=== PATIENT | male | born 1970 | race Caucasian/White ===

== ENCOUNTER 2018-01-19 12:40 | Emergency (ER) | payer BC ==
[2018-01-19] MEDS ORDERED: Ketorolac 60 MG/2 ML SDV IM ONE (12:54)
--- NOTE | 2018-01-19 12:55 | EDM.PDOC ---
ED HPI GENERAL MEDICAL PROBLEM - General Chief Complaint: Upper Extremity Injury/Pain Stated Complaint: pain/numbness in left arm Time Seen by Provider: 01/19/18 12:52 Source of Information: Reports: Patient History Limitations: Reports: No Limitations - History of Present Illness INITIAL COMMENTS - FREE TEXT/NARRATIVE: Patient drove self to ER with complaint of two episodes of chest pain. First episode happened around 10pm last night. Had sudden central/left sided chest pain that lasted around 15 minutes. No specific trigger linked to developing pain. Pain shot up towards neck. Had single episode of nausea/emesis. [place] dizzy. Sat in chair. Pain resolved in approximately 15". No sweating/SOB. [employer] [place] ok when he woke up today. While at work, had similar episode of chest pain while he was walking "across the shop". Again had nausea/emesis/dizzy Came to ER for evaluation. Pain-free at this time. Reports that heart felt like it was "beating funny" just prior to each of the above episodes. Strong family history of CAD. Has brother aged 42 who has had stents. Biological father with multiple MIs. Smoker. Denies ETOH usage except for socially 1-2 times a month. Has history of previously noted elevated triglycerides and LFTs. Does not take any medications. Recent problem with numbness/tingling of left arm after having a soft tissue injury while using sledgehammer a week ago. [employer] [place]/heard "pop" in left elbow area , followed by pain/swelling/numbness. Pending MRI this week for that to look for tendon/ligament injury. Complains of left arm numbness at this time. - Related Data Allergies Allergy/AdvReac Type Severity Reaction Status Date / Time No Known Allergies Allergy Verified 01/19/18 12:46 Past Medical History Cardiovascular History: Reports: High Cholesterol Respiratory History: Reports: Other (See Below) (smoker) - History Comment History Comment: Elevated LFTs noted in past Social & Family History - Family History Cardiac: Reports: CAD, [place], Stent - Tobacco Use Smoking Status *Q: Current Every Day Smoker - Alcohol Use Alcohol Use Frequency: Rarely, Socially - Recreational Drug Use Recreational Drug Use: No Drug Use in Last 12 Months: No - Living Situation & Occupation Living situation: Reports: Occupation: Employed Review of Systems - Review of Systems Review Of Systems: See Below Constitutional: Reports: No Symptoms Eyes: Reports: No Symptoms Ears: Reports: No Symptoms Nose: Reports: No Symptoms Mouth/Throat: Reports: No Symptoms Respiratory: Reports: No Symptoms. Denies: Shortness of Breath, Pleuritic Chest Pain, Cough, Hemoptysis Cardiovascular: Reports: Chest Pain, Lightheadedness, Palpitations. Denies: Syncope GI/Abdominal: Reports: Nausea, Vomiting. Denies: Abdominal Pain, Constipation, Decreased Appetite, Diarrhea Genitourinary: Reports: No Symptoms Musculoskeletal: Reports: Neck Pain, Arm Pain, Joint Pain (left elbow), Joint Swelling (left elbow) Skin: Reports: No Symptoms Neurological: Reports: Dizziness, Numbness (left arm), Weakness (left arm). Denies: Confusion, Difficulty Walking, Change in Speech, Gait Disturbance Psychiatric: Reports: No Symptoms ED EXAM, GENERAL - Physical Exam Exam: See Below Exam Limited By: No Limitations General Appearance: Alert, WD/WN, No Apparent Distress Eye Exam: Bilateral Eye: EOMI, PERRL Ears: Normal External Exam Nose: Normal Inspection Throat/Mouth: Normal Inspection, Normal Lips, Normal Voice, No Airway Compromise Head: Atraumatic, Normocephalic Neck: Normal Inspection, Supple, Non-Tender, Full Range of Motion. No: Carotid Bruit, Lymphadenopathy (L), Lymphadenopathy (R) Respiratory/Chest: No Respiratory Distress, Lungs Clear, Normal Breath Sounds, No Accessory Muscle Use, Chest Non-Tender Cardiovascular: Normal Peripheral Pulses, Regular Rate, Rhythm, No Edema, No Murmur Peripheral Pulses: 2+: Radial (L), Radial (R) GI/Abdominal: Normal Bowel Sounds, Soft, Non-Tender, No Distention (Male) Exam: Deferred Rectal (Males) Exam: Deferred Back Exam: Normal Inspection Extremities: Normal Capillary Refill, Other (mild swelling left elbow/forearm area. some discomfort with palpation in same area. 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) Neurological: Alert, Oriented, Normal Cognition, Normal Gait Psychiatric: Normal Affect, Normal Mood Skin Exam: Warm, Dry, Intact, Normal Color EKG INTERPRETATION EKG Date: 01/19/18 Time: 13:07 Rhythm: NSR Rate (Beats/Min): 74 [place]: Normal P-Wave: Present QRS: Normal ST-T: Other (minimal elevation (1 box) noted V2) Comparison: Change From Previous EKG (V2/1 box elevation) Course - Vital Signs Last Recorded V/S: Last Vital Signs Temp 37.1 C 01/19/18 12:43 Pulse 79 01/19/18 14:10 Resp 16 01/19/18 13:21 BP 141/82 H 01/19/18 14:10 Pulse Ox 100 01/19/18 13:21 - Orders/Labs/Meds Orders: Active Orders 24 hr Category Date Time Status EKG Documentation Completion [RC] ASDIRECTED Care 01/19/18 12:53 Active Chest 2V [CR] Stat Exams 01/19/18 13:36 Ordered Heparin Sodium/D5W [Heparin 25,000 Units in D5W 500 ML] Med 01/19/18 14:09 Active 25,000 units in 500 ml IV TITRATE Medication Orders Heparin Sodium/Dextrose (Heparin 25,000 Units In D5w 500 Ml) 25,000 units in 500 mls @ 27.76 mls/hr IV TITRATE KODI; Protocol Last Admin: 01/19/18 14:14 Dose: 12 units/kg/hr, 27.76 mls/hr Labs: Laboratory Tests 01/19/18 01/19/18 01/19/18 Range/Units 13:00 13:00 13:00 WBC 9.0 (4.0-10.2) K/uL RBC 5.10 (4.33-5.41) M/uL Hgb 15.5 (13.1-16.8) g/dL Hct 43.6 (39.0-49.0) % MCV 85.5 (84.0-98.0) fL MCH 30.4 (28.2-33.3) pg MCHC 35.6 (31.7-36.0) g/dL RDW 12.7 (11.2-14.1) % Plt Count 261 (150-350) K/uL Neut % (Auto) 59.1 (45.0-80.0) % Lymph % (Auto) 32.4 (10.0-50.0) % [place] % (Auto) 6.1 (2.0-14.0) % Eos % (Auto) 2.2 (0.0-5.0) % Baso % (Auto) 0.2 (0.0-2.0) % Neut # (Auto) 5.34 (1.40-7.00) K/uL Lymph # (Auto) 2.93 (0.50-3.50) K/uL [place] # (Auto) 0.55 (0.00-1.00) K/uL Eos # (Auto) 0.20 (0.00-0.50) K/uL Baso # (Auto) 0.02 (0.00-0.20) K/uL PT (9.8-11.7) SEC INR D-Dimer, Quantitative < 100 (0-400) ng/mL Sodium 139 (136-145) mmol/L Potassium 4.1 (3.5-5.1) mmol/L Chloride 104 (98-107) mmol/L Carbon Dioxide 27.2 (21.0-32.0) mmol/L BUN 10 (7-18) mg/dL Creatinine 0.77 (0.51-1.17) mg/dL Est Cr Clr Drug Dosing 121.14 mL/min Estimated GFR (MDRD) > 60 mL/min Glucose 103 (74-106) mg/dL Calcium 10.0 (8.5-10.1) mg/dL Total Bilirubin 0.4 (0.2-1.0) mg/dL AST 97 H (15-37) U/L ALT 166 H (12-78) U/L Alkaline Phosphatase 117 H (46-116) IU/L Creatine Kinase 322 H (26-308) U/L Creatine Kinase Index 1.4 (0.0-2.5) % CK-MB (CK-2) 4.50 H* (0.00-3.60) ng/mL Troponin I 0.076 H* (0.000-0.056) ng/mL Total Protein 8.2 (6.4-8.2) g/dL Albumin 4.1 (3.4-5.0) g/dL Ethyl Alcohol (0.000-0.080) g/dL 01/19/18 01/19/18 Range/Units 13:00 13:00 WBC (4.0-10.2) K/uL RBC (4.33-5.41) M/uL Hgb (13.1-16.8) g/dL Hct (39.0-49.0) % MCV (84.0-98.0) fL MCH (28.2-33.3) pg MCHC (31.7-36.0) g/dL RDW (11.2-14.1) % Plt Count (150-350) K/uL Neut % (Auto) (45.0-80.0) % Lymph % (Auto) (10.0-50.0) % [place] % (Auto) (2.0-14.0) % Eos % (Auto) (0.0-5.0) % Baso % (Auto) (0.0-2.0) % Neut # (Auto) (1.40-7.00) K/uL Lymph # (Auto) (0.50-3.50) K/uL [place] # (Auto) (0.00-1.00) K/uL Eos # (Auto) (0.00-0.50) K/uL Baso # (Auto) (0.00-0.20) K/uL PT 10.2 (9.8-11.7) SEC INR 1.0 D-Dimer, Quantitative (0-400) ng/mL Sodium (136-145) mmol/L Potassium (3.5-5.1) mmol/L Chloride (98-107) mmol/L Carbon Dioxide (21.0-32.0) mmol/L BUN (7-18) mg/dL Creatinine (0.51-1.17) mg/dL Est Cr Clr Drug Dosing mL/min Estimated GFR (MDRD) mL/min Glucose (74-106) mg/dL Calcium (8.5-10.1) mg/dL Total Bilirubin (0.2-1.0) mg/dL AST (15-37) U/L ALT (12-78) U/L Alkaline Phosphatase (46-116) IU/L Creatine Kinase (26-308) U/L Creatine Kinase Index (0.0-2.5) % CK-MB (CK-2) (0.00-3.60) ng/mL Troponin I (0.000-0.056) ng/mL Total Protein (6.4-8.2) g/dL Albumin (3.4-5.0) g/dL Ethyl Alcohol 0.000 (0.000-0.080) g/dL Meds: Medications Generic Name Dose Route Start Last Admin Trade Name Freq PRN Reason Stop Dose Admin Heparin Sodium/Dextrose 25,000 units in 500 mls @ 27.76 mls/hr 01/19/18 14:09 01/19/18 14:14 Heparin 25,000 Units In D5w 500 Ml IV 12 units/kg/hr TITRATE KODI 27.76 mls/hr Administration Protocol 12 UNITS/KG/HR Discontinued Medications Generic Name Dose Route Start Last Admin Trade Name Herlinda PRN Reason Stop Dose Admin Aspirin 324 mg 01/19/18 13:36 01/19/18 13:40 Aspirin PO 01/19/18 13:37 324 mg ONETIME ONE Administration Heparin Sodium (Porcine) 4,000 units 01/19/18 14:01 01/19/18 14:11 Heparin Sodium IVPUSH 01/19/18 14:02 4,000 units ONETIME ONE Administration Heparin Sodium/Dextrose 25,000 units in 500 mls @ 27.76 mls/hr 01/19/18 14:15 Heparin 25,000 Units In D5w 500 Ml IV TITRATE [facility] Protocol 12 UNITS/KG/HR Ketorolac Tromethamine 60 mg 01/19/18 12:54 01/19/18 13:42 Toradol IM 01/19/18 12:55 Not Given ONETIME ONE Metoprolol Tartrate 12.5 mg 01/19/18 14:00 01/19/18 14:10 Lopressor PO 01/19/18 14:01 12.5 mg ONETIME ONE Administration - Radiology Interpretation Free Text/Narrative:: Chest film showed no obvious acute changes. - Re-Assessments/Exams Free Text/Narrative Re-Assessment/Exam: 01/19/18 14:24 Patient remained pain-free in ER during evaluation. Vital signs stable. BP improved with time. Noted to have + Troponin and CKMB. Called and discussed patient with from [facility]. 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 Patient given ASA, Heparin, Metoprolol. Departure - Departure Time of Disposition: 14:23 Disposition: DC/Tfer to Acute Hospital 02 Condition: Good Clinical Impression: Elevated troponin Chest pain Qualifiers: Chest pain type: unspecified Qualified Code(s): R07.9 - Chest pain, unspecified - Discharge Information Referrals: PCP,Unknown [Primary Care Provider] - Forms: ED Department Discharge - My Orders Last 24 Hours: My Active Orders 01/19/18 12:53 EKG Documentation Completion [RC] ASDIRECTED 01/19/18 13:36 Chest 2V [CR] Stat 01/19/18 14:09 Heparin Sodium/D5W [Heparin 25,000 Units in D5W 500 ML] 25,000 units in 500 ml IV TITRATE - Assessment/Plan Last 24 Hours: My Active Orders 01/19/18 12:53 EKG Documentation Completion [RC] ASDIRECTED 01/19/18 13:36 Chest 2V [CR] Stat 01/19/18 14:09 Heparin Sodium/D5W [Heparin 25,000 Units in D5W 500 ML] 25,000 units in 500 ml IV TITRATE
[2018-01-19] MEDS ORDERED: Aspirin 81 MG Tab.Chew PO ONE (13:36)
[2018-01-19 13:37] LABS: CHLORIDE,CL 104 mmol/L (98-107); SODIUM,NA 139 mmol/L (136-145)
[2018-01-19] MEDS ORDERED: Metoprolol Tartrate 25 MG Tab PO ONE (14:00)
[2018-01-19] MEDS ORDERED: Heparin Sodium 5,000 Units/ML Vial IVPUSH ONE (14:01)
[2018-01-19] MEDS ORDERED: Heparin Sodium/D5W 25,000 UNITS/500 ML BAG IV SCH ×2 (14:09→14:15)
== END 2018-01-19 14:30 ==
LOC: LL.ED 12:40
DX: R07.9 Chest pain, unspecified (principal); R79.89 Other specified abnormal findings of blood chemistry; F17.200 Nicotine dependence, unspecified, uncomplicated; E78.00 Pure hypercholesterolemia, unspecified
CPT/HCPCS: 36415; 71046; 80053; 82550; 82553; 84484; 85025; 85379; 85610; 93005; 96374; 96376; 99285; A9270-GY; G0480; J1644

== ENCOUNTER 2021-04-20 17:54 | Emergency (ER) | payer OTHER ==
[2021-04-20] MEDS ORDERED: Sodium Chloride 0.9% 10 ML Syringe FLUSH PRN (18:12)
--- NOTE | 2021-04-20 18:43 | EDM.PDOC ---
ED HPI GENERAL MEDICAL PROBLEM - General Chief Complaint: General Stated Complaint: lightheaded, spinning sensation, left arm numbness Time Seen by Provider: 04/20/21 18:20 Source of Information: Reports: Patient History Limitations: Reports: No Limitations - History of Present Illness INITIAL COMMENTS - FREE TEXT/NARRATIVE: Patient presents to the Ed for sudden onset of dizziness. He states that he started his day well, no problems or pain. Had a normal day yesterday. He took his medication this morning and at about 3 pm he went to the [facility] to change his 's oil in the car. He bent over to get on his car slide and had sudden onset of the room spins. He caught himself with his left arm ( his dominant arm) but this caused him pain as he has been struggling with some left arm numbness and mid scapular pain for about a week. After resting on the ground for several minutes he managed to walk into the house. He sat in a chair for a few minutes and was still feeling dizzy like the room was spinning so he then laid on the floor and took a nap . He was found by his family members and continued to be dizzy so they decided to bring him in for evaluation. He does have a history of PTCA a couple of years ago. He is taking his medications and is scheduled to follow up with cardiology soon. Denies any chest pain. His symptoms are starting to resolve at arrival to the ER. He continues to complain of left arm pain but this has not changed in the last week. He did go to the chiropractor 3-4 days ago and had a forceful manipulation of his neck. Onset: Today, Sudden Onset Time: 15:00 - Related Data Allergies Allergy/AdvReac Type Severity Reaction Status Date / Time No Known Allergies Allergy Verified 04/20/21 18:24 Home Meds: Home Meds Aspirin 3 tab PO DAILY 04/20/21 [History] Metoprolol Tartrate 12.5 mg PO BID 04/20/21 [History] Niacin 2 tab PO BID 04/20/21 [History] [place]ille-3S/DHA/Epa/Fish Oil [Deville-3 Fish Oil 1,000 mg Sfgl] 2 tab PO BID 04/20/21 [History] Rosuvastatin [Crestor] 40 mg PO DAILY 04/20/21 [History] Past Medical History Cardiovascular History: Reports: CAD, High Cholesterol, Stents Respiratory History: Reports: Other (See Below) (smoker) - Past Surgical History Cardiovascular Surgical History: Reports: Coronary Artery Stent GI Surgical History: Reports: Appendectomy, Cholecystectomy - History Comment History Comment: Elevated LFTs noted in past Social & Family History - Family History Cardiac: Reports: CAD, [place], Stent - Tobacco Use Tobacco Use Status *Q: Current Every Day Tobacco User Years of Tobacco use: 30 Packs/Tins Daily: 1 Second Hand Smoke Exposure: No - Caffeine Use Caffeine Use: Reports: Soda Caffeine Use Comment: 1 mt dew in am , dt coke x 5 daily - Alcohol Use Date of Last Drink: 04/19/21 Alcohol Use in Last Twelve Months: Yes Alcohol Use Frequency: Weekly - Recreational Drug Use Recreational Drug Use: No Drug Use in Last 12 Months: No - Living Situation & Occupation Living situation: Reports: Occupation: Employed ED ROS GENERAL - Review of Systems Review Of Systems: See Below Constitutional: Reports: No Symptoms. Denies: Fever, Chills HEENT: Reports: No Symptoms. Denies: Sinus Problem, Throat Swelling Respiratory: Reports: No Symptoms. Denies: Shortness of Breath, Cough Cardiovascular: Denies: Chest Pain, Dyspnea on Exertion GI/Abdominal: Reports: No Symptoms. Denies: Decreased Appetite, Nausea, Vomiting : Reports: No Symptoms. Denies: Discharge, Dysuria Musculoskeletal: Reports: Arm Pain (left arm for the last week ) Skin: Reports: No Symptoms Neurological: Reports: Dizziness (spinning), Tingling (left arm entire length for the last week ) ED EXAM, GENERAL - Physical Exam Exam: See Below Exam Limited By: No Limitations General Appearance: Alert, WD/WN, No Apparent Distress Eye Exam: Bilateral Eye: EOMI (no nystgamus), Normal Inspection, PERRL (3mm reactive) Ears: Normal External Exam, Normal TMs Ear Exam: Bilateral Ear: Canal Normal, TM normal Nose: Normal Inspection, Normal Mucosa, No Blood Throat/Mouth: Normal Inspection, Normal Lips, Normal Teeth, Normal Voice Head: Atraumatic Neck: Normal Inspection, Supple, Non-Tender, Full Range of Motion. No: Lymphadenopathy (R), Tender Lateral, Tender Midline, Thyromegaly Respiratory/Chest: No Respiratory Distress, Lungs Clear, Normal Breath Sounds, Chest Non-Tender Cardiovascular: Normal Peripheral Pulses, Regular Rate, Rhythm, No Edema, No Murmur GI/Abdominal: Normal Bowel Sounds, Soft, Non-Tender, No Abnormal Bruit Back Exam: Normal Inspection, Full Range of Motion. No: CVA Tenderness (L), CVA Tenderness (R), Decreased Range of Motion Extremities: Normal Inspection, Normal Range of Motion, No Pedal Edema, Normal Capillary Refill, Other (normal synthetic chemist stregnth, push pull of the right and upper extremities. No lesions or rashes, no muscle atrophy) Neurological: Alert, Oriented, CN II-XII Intact, Normal Cognition, Normal Gait, No Motor/Sensory Deficits, Other (negative pronator drift, normal finger to nose with eyes closed, normal ELIZABET, normal strength thumb to second finger and thumb to fifth finger to resistance, normal synthetic chemist strength in the upper and lower extremities, normal dorsi and plantar flexion, normal heel to li) Psychiatric: Normal Affect #1 Interpretation EKG Date: 04/20/21 Time: 18:59 Rhythm: NSR Rate (Beats/Min): 63 [place]: Normal P-Wave: Present QRS: Normal ST-T: Normal QT: Normal Course - Vital Signs Last Recorded V/S: Last Vital Signs Temp 36.3 C 04/20/21 20:15 Pulse 65 04/20/21 20:15 Resp 16 04/20/21 20:15 BP 135/91 H 04/20/21 20:15 Pulse Ox 96 04/20/21 20:15 - Orders/Labs/Meds Orders: Active Orders 24 hr Category Date Time Status EKG Documentation Completion [RC] ASDIRECTED Care 04/20/21 18:13 Ordered Peripheral IV Care [RC] . DIRECTED Care 04/20/21 18:12 Ordered Ang Head [CT] Stat Exams 04/20/21 20:30 Ordered Ang Neck [CT] Stat Exams 04/20/21 18:25 Ordered Chest 2V [CR] Stat Exams 04/20/21 18:26 Ordered Head wo Cont [CT] Stat Exams 04/20/21 18:25 Ordered Sodium Chloride 0.9% [Saline Flush] Med 04/20/21 18:12 Ordered 10 ml FLUSH ASDIRECTED PRN Peripheral IV Insertion Adult [OM.PC] Routine Oth 04/20/21 18:12 Ordered EKG 12 Lead [EK] Stat Ther 04/20/21 18:12 Ordered Medication Orders Sodium Chloride (Sodium Chloride 0.9% 10 Ml Syringe) 10 ml FLUSH ASDIRECTED PRN PRN Reason: Keep Vein Open Labs: Laboratory Tests 04/20/21 04/20/21 04/20/21 Range/Units 18:45 18:45 19:25 WBC 8.8 (4.0-10.2) K/uL RBC 5.09 (4.33-5.41) M/uL Hgb 15.2 (13.1-16.8) g/dL Hct 42.8 (39.0-49.0) % MCV 84.1 (84.0-98.0) fL MCH 29.9 (28.2-33.3) pg MCHC 35.5 (31.7-36.0) g/dL RDW 12.6 (11.2-14.1) % Plt Count 186 (150-350) K/uL Neut % (Auto) 57.1 (45.0-80.0) % Lymph % (Auto) 30.9 (10.0-50.0) % [place] % (Auto) 5.9 (2.0-14.0) % Eos % (Auto) 5.5 H (0.0-5.0) % Baso % (Auto) 0.6 (0.0-2.0) % Neut # (Auto) 5.02 (1.40-7.00) K/uL Lymph # (Auto) 2.71 (0.50-3.50) K/uL [place] # (Auto) 0.52 (0.00-1.00) K/uL Eos # (Auto) 0.48 (0.00-0.50) K/uL Baso # (Auto) 0.05 (0.00-0.20) K/uL Sodium 141 (136-145) mmol/L Potassium 4.4 (3.5-5.1) mmol/L Chloride 105 (98-107) mmol/L Carbon Dioxide 25.9 (21.0-32.0) mmol/L Anion Gap 10.1 (7-15) meq/L BUN 17 (7-18) mg/dL Creatinine 0.97 (0.51-1.17) mg/dL Est Cr Clr Drug Dosing TNP Estimated GFR (MDRD) > 60 mL/min Glucose 103 H (70-99) mg/dL Calcium 9.6 (8.5-10.1) mg/dL Total Bilirubin 0.4 (0.2-1.0) mg/dL AST 31 (15-37) U/L ALT 43 (12-78) U/L Alkaline Phosphatase 115 (46-116) IU/L Troponin I High Sens 6 (<=76) ng/L Total Protein 7.4 (6.4-8.2) g/dL Albumin 4.1 (3.4-5.0) g/dL TSH, Ultra Sensitive 0.921 (0.358-3.740) mIU/mL Specimen Type Urincc Urine Color Yellow Urine Appearance Clear Urine pH 7.0 (5.0-9.0) Ur Specific [place] 1.020 (1.005-1.030) Urine Protein Negative (NEGATIVE) mg/dL Urine Glucose (UA) Negative (NEGATIVE) mg/dL Urine Ketones Negative (NEGATIVE) mg/dL Urine Occult Blood Negative (NEGATIVE) Urine Nitrite Negative (NEGATIVE) Urine Bilirubin Negative (NEGATIVE) Urine Urobilinogen 0.2 (0.2-1.0) E.U./dL Ur Leukocyte Esterase Negative (NEGATIVE) Meds: Medications Generic Name Dose Route Start Last Admin Trade Name Freq PRN Reason Stop Dose Admin Sodium Chloride 10 ml 04/20/21 18:12 Sodium Chloride 0.9% 10 Ml Syringe FLUSH ASDIRECTED PRN Keep Vein Open Discontinued Medications Generic Name Dose Route Start Last Admin Trade Name Freq PRN Reason Stop Dose Admin Sodium Chloride 1,000 mls @ 1,000 mls/hr 04/20/21 18:12 04/20/21 18:48 Normal Saline IV 04/20/21 19:11 1,000 mls/hr .BOLUS ONE Administration Iopamidol 100 ml 04/20/21 18:56 04/20/21 19:39 Iopamidol 755 Mg/Ml 100 Ml Bottle IVPUSH 04/20/21 18:57 100 ml ONETIME STA Administration - Radiology Interpretation Free Text/Narrative:: Ct head non contrast without changes. CTA head and neck with no dissection, s troke or acute problem. Has 50% right internal carotid artery stenosis. Does have some significant spinal stenosis of C4-6 with foraminal stenosis. Discussed with Radiologist Chest no acute problems , interpreted by radiologist - Re-Assessments/Exams Free Text/Narrative Re-Assessment/Exam: 04/20/21 18:57 Patient had sudden onset of dizziness which is improving. Normal neuro exam, does not have any notable defect. Concern for his forceful manipulation of his neck and dissection. Will get CTA neck, ct non contrast head. Check labs, EKG and chest x-ray. Does have a history of CAD, with history of genetically high cholesterol and triglycerides. Is on medication and is taking with good success of lowering of levels. His NC was with symptoms of not feeling well, no chest pain or arm numbness. 04/20/21 21:06 Discussed findings with patient. Needs to follow up for MRI c spine and thoracic spine due to significant stenosis and arm problems. recommend carotid dopplers due to stenosis on right. Understands need to keep close follow up with cardiology and is at high risk for peripheral vascular disease also. Will due meclizine and move the head and neck as one motion if the dizziness recurs. If it recurs and persist or neurological changes happen, needs MRI in [place]. voices undertsanding Departure - Departure Time of Disposition: 21:00 Disposition: Home, Self-Care 01 Clinical Impression: Dizziness, Cervical spinal stenosis, Carotid artery disease - Discharge Information *PRESCRIPTION DRUG MONITORING PROGRAM REVIEWED*: Not Applicable *COPY OF PRESCRIPTION DRUG MONITORING REPORT IN PATIENT PABLO: Not Applicable Instructions: Dizziness, [id number]-Frex, Spinal Stenosis, Dzil-ex-Nipl, Carotid Artery Disease Referrals: PCP,None [Primary Care Provider] - Forms: ED Department Discharge Additional Instructions: Testing today was negative for infection, electrolyte problems, thyroid problems, heart attack, stroke or artery dissection. hydrate better. If the dizziness recurs, you can use over the counter meclizine for the dizziness and limit your head and neck movement to move as one. DO not allow forceful chiropractic manipulation of your neck as this can lead to vertebral artery dissection. Keep follow up with cardiology and follow up with your PCP later in the week. It is recommended that you get an MRI of your cervical spine and thoracic spine due to stenosis. Also you have about 50% blockage in the right internal carotid artery. CArotid doppler ( ultrasound) studies are recommended. Contact PCP for this. Sepsis Event Note (ED) - Evaluation Sepsis Screening Result: No Definite Risk - Focused Exam Vital Signs: Vital Signs Temp Pulse Resp BP Pulse Ox 04/20/21 20:15 36.3 C 65 16 135/91 H 96 04/20/21 19:39 36.3 C 68 22 H 149/83 H 98 04/20/21 19:00 68 68 H 157/94 H 95 04/20/21 18:31 72 20 140/81 95 04/20/21 18:15 72 20 118/83 98 04/20/21 18:10 36.4 C 69 20 153/89 H 94 L - My Orders Last 24 Hours: My Active Orders 04/20/21 18:12 Peripheral IV Care [RC] . DIRECTED Sodium Chloride 0.9% [Saline Flush] 10 ml FLUSH ASDIRECTED PRN Peripheral IV Insertion Adult [OM.PC] Routine EKG 12 Lead [EK] Stat 04/20/21 18:13 EKG Documentation Completion [RC] ASDIRECTED 04/20/21 18:25 Ang Neck [CT] Stat Head wo Cont [CT] Stat 04/20/21 18:26 Chest 2V [CR] Stat 04/20/21 20:30 Ang Head [CT] Stat - Assessment/Plan Last 24 Hours: My Active Orders 04/20/21 18:12 Peripheral IV Care [RC] . DIRECTED Sodium Chloride 0.9% [Saline Flush] 10 ml FLUSH ASDIRECTED PRN Peripheral IV Insertion Adult [OM.PC] Routine EKG 12 Lead [EK] Stat 04/20/21 18:13 EKG Documentation Completion [RC] ASDIRECTED 04/20/21 18:25 Ang Neck [CT] Stat Head wo Cont [CT] Stat 04/20/21 18:26 Chest 2V [CR] Stat 04/20/21 20:30 Ang Head [CT] Stat
[2021-04-20] MEDS: Sodium Chloride 0.9% 1,000 ML IV ONE (18:48)
[2021-04-20 19:11] LABS: ANION GAP 10.1 meq/L (7-15); CHLORIDE,CL 105 mmol/L (98-107); SODIUM,NA 141 mmol/L (136-145)
[2021-04-20] MEDS: Iopamidol 755 Mg/ML 100 ML Bottle IVPUSH STA (19:39)
== END 2021-04-20 21:13 | disposition home or self-care (01) ==
LOC: LL.ED 17:54
DX: M48.02 Spinal stenosis, cervical region (principal); I77.9 Disorder of arteries and arterioles, unspecified; I25.10 Atherosclerotic heart disease of native coronary artery without angina pectoris; E78.00 Pure hypercholesterolemia, unspecified; Z95.5 Presence of coronary angioplasty implant and graft; Z72.0 Tobacco use; Z79.82 Long term (current) use of aspirin; Z79.899 Other long term (current) drug therapy
CPT/HCPCS: 70496; 70498; 71046; 80053; 81003; 84443; 84484; 85025; 93005; 99284; J7030; Q9967; 70450; 93010

== ENCOUNTER 2022-03-16 22:18 | Emergency (ER) | payer OTHER ==
[2022-03-16] MEDS ORDERED: Sodium Chloride 0.9% 1,000 ML IV ONE (22:39)
[2022-03-16] MEDS ORDERED: Ketorolac 30 MG/ML SDV IVPUSH ONE (22:40)
[2022-03-16] MEDS ORDERED: Promethazine 12.5 MG in Sodium Chloride 0.9% 100 ML IV ONE (22:40)
[2022-03-16] MEDS ORDERED: Sodium Chloride 0.9% 10 ML Syringe FLUSH PRN (22:52)
[2022-03-16 23:13] LABS: ANION GAP 12.5 meq/L (7-15); CHLORIDE,CL 105 mmol/L (98-107); SODIUM,NA 144 mmol/L (136-145)
[2022-03-16 23:14] LABS: ESTIMATED GFR 65 mL/min (>=60)
[2022-03-16] MEDS ORDERED: traMADol 50 MG Tab PO PRN (23:30)
[2022-03-16] MEDS ORDERED: Tamsulosin 0.4 MG Cap.ER PO ONE (23:31)
== END 2022-03-17 00:15 | disposition home or self-care (01) ==
LOC: LL.ED 22:18
DX: N13.2 Hydronephrosis with renal and ureteral calculous obstruction (principal); R11.2 Nausea with vomiting, unspecified; I25.10 Atherosclerotic heart disease of native coronary artery without angina pectoris; E78.00 Pure hypercholesterolemia, unspecified; F17.210 Nicotine dependence, cigarettes, uncomplicated; Z79.82 Long term (current) use of aspirin; Z79.899 Other long term (current) drug therapy; Z95.5 Presence of coronary angioplasty implant and graft
CPT/HCPCS: 36415; 74150; 80053; 85025; 96361; 96365; 96375; 99284; 99284-25; A9270-GY; J1885; J2550; J3490; J7030